=== PATIENT | male | born 1950 ===

== ENCOUNTER 2017-07-07 08:21 | Day surgery (SDC) | payer MEDICARE ==
[2017-07-07 08:49] VITALS: BMI 29.2
[2017-07-07] MEDS ORDERED: Propofol 10 mg/ml Inj (20 ML) ONE (09:47)
[2017-07-07] MEDS ORDERED: Lactated Ringer's 500 ML IV ONE (09:50)
[2017-07-07 10:01] VITALS: O2SAT 100
[2017-07-07 10:29] VITALS: TEMP 96.8
[2017-07-07 11:37] VITALS: BP 144/78; PULSE 56; RESP 16
== END 2017-07-07 11:30 | disposition home or self-care (01) ==
LOC: C.ENDO 08:21
PROVIDERS: ATTEND Internal Medicine Gastroenterology
DX: K62.1 Rectal polyp (principal); K64.8 Other hemorrhoids; D12.3 Benign neoplasm of transverse colon
CPT/HCPCS: 45380; 45388; 82948; 88305; J2704; J7120